=== PATIENT | male | born 1995 | race American Indian/Alaskan Native ===

== ENCOUNTER 2024-11-04 10:56 | Emergency (ER) | payer BC, SELFPAY ==
[2024-11-04 11:13] VITALS: BP 137/91
--- NOTE | 2024-11-04 11:21 | EDRN ---
pt was called into the triage room and at first didnot answer due to the triage nurse pronouncing his name wrong.
triage nurse apologized for saying his name wrong and started to get angry and told the nurse she said his name wrong pt continued to berate an criticize triage nurse . pt then said just do your job.
this triage nurse ask pt not to speak to the nurse that way. this triage nurse left room and had another nurse triage pt.
--- NOTE | 2024-11-04 12:52 | ED.GENMED ---
History of Present Illness
General
Chief Complaint: Allergic Reaction
Source: patient
Exam Limitations: none
Time Seen by Provider: 11/04/24 12:01
Nursing documentation reviewed up to this point in time: agreed with
History of Present Illness
History of Present Illness:
Patient is a 28-year-old male presenting to the emergency department for evaluation of allergic reaction. Patient states that he took an Exedrin Migraine around 8PM last night for mild headache and low grade fever. He reports allergic reaction
beginning shortly after including swelling of both of his eyelids, lips, and tightening in his throat. He does note some mild wheezing, as well. Patient went to a [facility] where he was able to buy an OTC epinephrine inhaler and used two puffs with
improvement in symptoms.
Patient denies any lingering throat irritation or sensation that throat is closing. However�he did have some remaining swelling of his eyelids. He contacted his primary care provider this morning who recommended that he come to the emergency
department.
Patient denies any associated nausea, vomiting, abdominal pain. No notable rash.
Patient has had allergic reactions the past 2 ibuprofen which he tries to avoid.
Review of Systems
Review of Systems
Allergies reviewed?: Yes
All Other Systems: ROS reviewed and negative except as documented in HPI and ROS
Phy Exam
Physical Exam
Physical Exam:
Vitals: Mildly hypertensive, otherwise stable vital signs. Afebrile
General: Patient is well appearing, no acute distress. Nontoxic.
Skin: Warm and dry, no rashes or lesions. No hives
Head: Normocephalic, atraumatic
Eyes: Mild bilateral upper lid swelling. Sclera nonicteric. EOMs intact. No nystagmus.
Throat: No swelling of lips tongue. No pharyngeal erythema or edema. Uvula midline. Patent airway. Protecting airway. Clear speech
Neck: Normal ROM, no cervical spine tenderness, no meningismus
Cardiac: Regular rate and rhythm, no murmurs.
Pulm: Normal respiratory effort, no wheezes, rales, rhonchi heard on exam. O2 saturation 99 on room air.
Abdomen: Abdomen soft. No abdominal tenderness.
Extremities: No evidence of cyanosis or edema
Neuro: AAOx3. Grossly intact.
Psychiatric: Normal affect.
Course
Orders/Labs/Results
Orders:
Orders
11/04/24 12:46
Prednisone [Deltasone] 50 mg PO NOW STA
Vital Signs
Initial and Last Documented VS:
Initial Vital Signs
Temp Pulse Resp BP Pulse Ox
98.4 F 95 18 137/91 99
11/04/24 11:13 11/04/24 11:13 11/04/24 11:13 11/04/24 11:13 11/04/24 11:13
Last Documented Vital Signs
Temp Pulse Resp BP Pulse Ox
98.4 F 95 18 137/91 99
11/04/24 11:13 11/04/24 11:13 11/04/24 11:13 11/04/24 11:13 11/04/24 11:13
MDM/Problems Addressed
Differential Diagnosis Includes:
Not limited to: Drug reaction, anaphylaxis, contact allergen, etc.
MDM/Problems Addressed:
28-year-old male presenting with mild allergic reaction last night mostly resolved by arrival. He does have lingering swelling of bilateral upper eyelids. No throat irritation, difficulty breathing, wheezing, abdominal pain, hives. Did take OTC
epinephrine inhaler yesterday. History of similar reaction to ibuprofen. Did take Excedrin Migraine which contained aspirin last night. Patient hypertensive on arrival, otherwise stable vital signs. He is not tachycardic, tachypneic, or hypoxic.
On exam�patient is very well-appearing, in no apparent distress. No hives. Mild bilateral upper lid edema. No evidence of lip swelling, oral swelling, or throat swelling. No pharyngeal erythema. Patient has clear speech. Patient has clear
lungs with no wheeze. No evidence of current anaphylaxis. Given patient ingested suspected allergen yesterday with no evidence of lingering severe reaction�feel he is stable for discharge home. Will treat patient with 5 days of p.o. prednisone
and prescribe EpiPen. Advised patient to follow closely with mail processor outpatient. He should avoid NSAIDs and Tylenol until specific allergens identified. He will follow close with primary care outpatient. Patient stable for discharge home.
Chronic conditions affecting care:
N/A
Acute Exacerbation and/or Progression of Chronic Illness:
N/A
*Pulse Oximetry
Patient hypoxic: no
*EKG
Interpreted by ED Provider?: NA
*Fusing Machine Operator Interpretation
Rate: Fusing Machine Operator- N/A
*Critical Care Note
Total Time (30-74mins, 75-104mins- exclusive of procedures): Not Applicable
ED Attending Note
-
Portions of this chart may have been created with voice recognition software.� Occasional wrong word or��sound alike� substitutions may have occurred due to the inherent limitations of voice recognition software.
Discharge Plan
Departure
Patient Disposition: Home (Routine Discharge)
Date of Disposition: 11/04/24
Time of Disposition: 12:53
Patient with high blood pressure during this ER visit?: Yes
Condition: Good
Covid-19: Not Applicable
Discharge Problem:
Allergic reaction
Instructions: Anaphylaxis - Discharge instructions, BLOOD PRESSURE
Prescriptions:
New
prednisone 50 mg tablet
50 mg PO DAILY Qty: 4 0RF
epinephrine [EpiPen 2-Darci] 0.3 mg/0.3 mL auto-injector
0.3 mg IM ONCE Qty: 2 2RF
Referrals:
Dom Eastman MD [[facility]] - Next open appointment
Kayy Hilton CRNP [Family Provider] -
Activity Restrictions/Additional Instructions:
RETURN TO THE EMERGENCY DEPARTMENT WITH ANY SHORTNESS OF BREATH/DIFFICULTY BREATHING, SENSATION OF THROAT CLOSING, TONGUE/LIP SWELLING, HIVES, INTRACTABLE NAUSEA/VOMITING, EVIDENCE OF RECURRENT ALLERGIC REACTION, WORSENING IN CURRENT SYMPTOMS, OR
ANY OTHER CONCERNS
-2 prescriptions have been sent to your pharmacy. You were given your first dose of steroid in the emergency department. You should continue to take for the following 4 days. A prescription for an EpiPen has been sent to your pharmacy as well.
You should have this on hand in case of allergic reactions in the future.
-As discussed�we are unsure exactly which component of medication caused allergic reaction. Until you are seen by an mail processor and has been cleared�you should avoid any NSAIDs including Advil, Motrin, ibuprofen, Aleve, naproxen and acetaminophen.
-You should follow-up with your primary care in a few days to ensure symptoms are improving. You should contact mail processor soon as possible to get appointment. Contact information has provided for you above.
Monitor your symptoms closely return to the emergency department any acute worsening/new symptoms or any other concerns
Interventions
Interventions:
*Risk Screen - Suicide Last Done: 11/04/24 11:13
*General Assessment Last Done: 11/04/24 11:13
*Neglect/Abuse Screening Last Done: 11/04/24 11:13
*Nursing Disposition Last Done: 11/04/24 13:06
ED- Cardiac Assessment Last Done: 11/04/24 12:56
ED- Pulmonary Assessment Last Done: 11/04/24 12:56
ED-Skin Assessment Last Done: 11/04/24 12:56
Discharge Date and Time
Discharge Date/Time: 11/04/24 13:06
Print Language: ROMANSH
[2024-11-04] MEDS: DELTASONE 50 MG PO (13:01)
== END 2024-11-04 13:06 | disposition home or self-care (01) ==
LOC: EMR 10:56
PROVIDERS: EMERGENCY PHYSICIAN Student in an Organized Health Care Education/Training Program; FAMILY PHYSICIAN Nurse Practitioner Adult Health
DX: T78.40XA Allergy, unspecified, initial encounter (principal); I10 Essential (primary) hypertension
CPT/HCPCS: 99283

== ENCOUNTER → 2025-08-22 09:39 | Outpatient (REF) | payer BC, SELFPAY | LOC: HWRAD 09:39 | PROVIDERS: ATTENDING PHYSICIAN Nurse Practitioner Family | DX: R74.01 Elevation of levels of liver transaminase levels (principal); R19.00 Intra-abdominal and pelvic swelling, mass and lump, unspecified site | CPT/HCPCS: 76700 ==